=== PATIENT | male | born 2000 | race Caucasian/White ===

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

== ENCOUNTER 2022-12-19 16:03 | Emergency (ER) | payer OTHER ==
[~2022-12-19] VITALS: Ht 177.8 cm; Wt 58.1 kg
[~2022-12-19 16:03] MED LIST: IBUP-2213 PO
[2022-12-19 16:16] VITALS: BP 128/78
--- NOTE | 2022-12-19 17:39 | NUR ---
PT AMBULATED TO ER BED 4
[2022-12-19 18:24] LABS: APPEARANCE,URINE CLEAR (CLEAR); BILIRUBIN,URINE NEGATIVE (NEGATIVE); BLOOD, URINE NEGATIVE (NEGATIVE); COLOR,URINE YELLOW (YELLOW); LEUKOCYTE ESTERASE ,URINE NEGATIVE (NEGATIVE); NITRITE, URINE NEGATIVE (NEGATIVE); UGLUCOSE NEGATIVE (NEGATIVE)
[2022-12-19] MEDS ORDERED: IBUP-1842 PO (18:35)
[2022-12-19 19:24] VITALS: BP 128/78
== END 2022-12-19 19:25 | disposition home or self-care (01) ==
LOC: MED 16:03
DX: I86.1 Scrotal varices (principal); N50.812 Left testicular pain; Z79.899 Other long term (current) drug therapy
CPT/HCPCS: 76870; 81003; 87491; 99284; Q0092